=== PATIENT | female | born 1930 | race Caucasian/White ===

== ENCOUNTER 2017-03-02 21:16 | Inpatient (IN) | payer OTHER ==
[~2017-03-02] VITALS: Ht 139.7 cm; Wt 47.1 kg
[~2017-03-02 21:16] MED LIST: IBUP-727 PO
[2017-03-03] VITALS (8 sets, daily range): BP systolic 111–201; BP diastolic 58–91; PULSE 81; RESP 18–20; TEMP 98; Ht 139.7 cm; Wt 47.1 kg
--- NOTE | 2017-03-03 01:49 | ERA ---
ER Documentation Chief Complaint Date/Time DATE: 03/03/17 TIME: 01:48 Chief Complaint C/O LL LEG PAIN X1 MONTH FROM WOUND INJURY FROM A DOG GAIT FALLING ON HER HPI This is an 86-year-old female with complaints of left lower leg pain for a month female with chronic wound is currently healed. Patient is doing multiple course of outpatient antibiotics with no relief. No fevers no chills. No other current complaints ROS All systems reviewed and are negative except as per history of present illness. Medications Home Meds Reported Medications Ibuprofen (Motrin) 600 Mg Tablet, 600 MG PO DAILY 05/08/12 Allergies Allergies: Coded Allergies: No Known Allergy (Unverified , 11/20/15) PMhx/Soc History of Surgery: Yes (CHOLECYSTECTOMY) Anesthesia Reaction: No Hx Neurological Disorder: No Hx Respiratory Disorders: No Hx Cardiac Disorders: Yes (HTN) Hx Psychiatric Problems: No Hx Miscellaneous Medical Probl: No Hx Alcohol Use: No Hx Substance Use: No Hx Tobacco Use: No Smoking Status: Never smoker Physical Exam Vitals Vital Signs Date Time Temp Pulse Resp B/P Pulse Ox O2 Delivery O2 Flow Rate FiO2 03/02/17 21:42 96.7 88 20 190/88 97 Physical Exam Const: [] Head: Atraumatic Eyes: Normal Conjunctiva ENT: Normal External Ears, Nose and Mouth. Neck: Full range of motion..~ No meningismus. Resp: Clear to auscultation bilaterally Cardio: Regular rate and rhythm, no murmurs Abd: Soft, non tender, non distended. Normal bowel sounds Skin: Left lower extremity chronic wound showing minor infection Back: No midline or flank tenderness Ext: No cyanosis, or edema Neur: Awake and alert Psych: Normal Mood and Affect Procedures/MDM Medical assessment: 86 year female cellulitis with failed wound healing. Patient will be admitted for intravenous antibiotics. Departure Diagnosis: Primary Impression: Cellulitis Qualified Code: L03.90 - Cellulitis, unspecified cellulitis site Condition: Stable DWAYNEKAMIANNELIESEANTONIOCourtney Mar 03, 2017 01:49
[2017-03-03 02:05] LABS: ADD SCAN DIFF NO
[2017-03-03 02:09] LABS: ABNORMAL IP MESSAGE 1; HEMATOCRIT 36.6 % (37.0-47.0); HEMOGLOBIN 11.6 g/dl (12.0-16.0); MEAN CORPUSCULAR HEMOGLOBIN 28.2 pg (29.0-33.0); MEAN CORPUSCULAR HGB CONC 31.7 g/dl (32.0-37.0); MEAN CORPUSCULAR VOLUME 88.8 fl (82.0-101.0); PLATELET COUNT 93 10^3/UL (140-415); RED BLOOD COUNT 4.12 10^6/ul (4.20-5.40); RED CELL DISTRIBUTION WIDTH 13.2 % (11.5-14.5); WHITE BLOOD COUNT 3.9 10^3/ul (4.8-10.8)
[2017-03-03 02:20] LABS: MEAN PLATELET VOLUME 11.8 fl (7.4-10.4)
[2017-03-03 02:25] LABS: ADD UMIC YES; URINE BILIRUBIN (Dip) NEGATIVE (NEGATIVE); URINE BLOOD (Dip) TRACE (NEGATIVE); URINE COLOR LT. YELLOW (YELLOW); URINE GLUCOSE (Dip) NEGATIVE (NEGATIVE); URINE KETONES (Dip) NEGATIVE (NEGATIVE); URINE LEUKOCYTE ESTERASE (Dip) NEGATIVE (NEGATIVE); URINE NITRITE (Dip) NEGATIVE (NEGATIVE); URINE TOTAL PROTEIN (Dip) NEGATIVE (NEGATIVE); URINE UROBILINOGEN (Dip) 0.2 E.U./dL (0.1-1.0)
[2017-03-03 02:27] LABS: ALBUMIN 4.2 g/dl (3.3-4.9); POTASSIUM 4.1 mmol/L (3.5-5.1)
[2017-03-03 02:29] LABS: BILIRUBIN,INDIRECT 0.4 mg/dl (0-1.1); BILIRUBIN,TOTAL 0.4 mg/dl (0.2-1.3); CREATININE 0.57 mg/dl (0.44-1.00)
[2017-03-03 02:30] LABS: ALBUMIN/GLOBULIN RATIO 0.97; CALCIUM 9.3 mg/dl (8.4-10.2); TOTAL PROTEIN 8.5 g/dl (6.1-8.1)
[2017-03-03 02:41] LABS: BACTERIA,URINE OCCASIONAL; SQUAMOUS EPITHELIAL CELL,UR FEW
[2017-03-03 03:03] LABS: EOSINOPHILS # 0.5 10^3/ul (0.0-0.5); LYMPHOCYTES # 0.7 10^3/ul (0.8-2.9); MONOCYTE # 0.4 10^3/ul (0.3-0.9); NEUTROPHIL # 2.3 10^3/ul (1.6-7.5)
[2017-03-03 03:05] LABS: PLATELET ESTIMATE PLT APPEAR DECREASED
[2017-03-03] MEDS ORDERED: morphine 2 MG INJ IV PRN (04:00)
[2017-03-03] MEDS: CEFTRIAXONE 1 GM/50 ML (PMX) 50 ML IVPB SCH (04:06)
[2017-03-03] MEDS: SOD CHLORIDE 0.9% 1,000 ML IV SCH ×2 (04:06→23:19)
[2017-03-03] MEDS ORDERED: THYROID MEDS (04:19)
[2017-03-03 05:46] LABS: ADD SCAN DIFF NO
[2017-03-03 06:14] LABS: ALBUMIN 3.7 g/dl (3.3-4.9); POTASSIUM 3.5 mmol/L (3.5-5.1)
[2017-03-03 06:16] LABS: CREATININE 0.54 mg/dl (0.44-1.00)
[2017-03-03 06:17] LABS: ALBUMIN/GLOBULIN RATIO 0.92; BILIRUBIN,INDIRECT 0.3 mg/dl (0-1.1); BILIRUBIN,TOTAL 0.3 mg/dl (0.2-1.3); TOTAL PROTEIN 7.7 g/dl (6.1-8.1)
[2017-03-03] MEDS: PANTOPRAZOLE (EC) 40 MG TAB PO SCH (06:38)
[2017-03-03] MEDS: ENOXAPARIN 40 MG/0.4 ML SYG SC SCH (09:26)
[2017-03-03 10:36] LABS: BASOPHILS % 0.3 % (0.0-2.0); EOSINOPHILS # 0.2 10^3/ul (0.0-0.5); EOSINOPHILS % 6.6 % (0.0-7.0); HEMATOCRIT 33.2 % (37.0-47.0); HEMOGLOBIN 10.8 g/dl (12.0-16.0); MEAN CORPUSCULAR HEMOGLOBIN 29.3 pg (29.0-33.0); MEAN CORPUSCULAR HGB CONC 32.5 g/dl (32.0-37.0); MEAN CORPUSCULAR VOLUME 90.2 fl (82.0-101.0); MEAN PLATELET VOLUME 10.9 fl (7.4-10.4); MONOCYTE # 0.3 10^3/ul (0.3-0.9); MONOCYTES % 8.6 % (0.0-11.0); NEUTROPHIL # 1.9 10^3/ul (1.6-7.5); NEUTROPHILS % 54.2 % (39.0-77.0); PLATELET COUNT 116 10^3/UL (140-415); RED BLOOD COUNT 3.68 10^6/ul (4.20-5.40); RED CELL DISTRIBUTION WIDTH 13.2 % (11.5-14.5); WHITE BLOOD COUNT 3.5 10^3/ul (4.8-10.8)
--- NOTE | 2017-03-03 18:38 | QN ---
Documentation Comment [id number] JARED WINTER MD Mar 03, 2017 18:38
[2017-03-03] MEDS: ARTIFICIAL TEARS 15 ML OPH BOTH EYES PRN (19:20)
[2017-03-03] MEDS: LEVOTHYROXINE 25 MCG TAB PO SCH ×2 (20:40→21:00)
--- NOTE | 2017-03-03 21:26 | HP ---
DATE OF ADMISSION: 03/03/2017 HISTORY OF PRESENT ILLNESS: Samantha Cruz is an 86-year-old female who has a history of ERCP and sphincterectomy and some small stones removed in the past. The patient has no history of hypertension or diabetes mellitus. Presented with left leg wound going on for almost a month and is admitted for further management. Patient was seen, family is at bedside. The patient's WBC 3.9, hematocrit 32.6, platelet count 93, 1116 and patient has sodium of 137, potassium of 3.5, alk phos 163. Urine is negative. PAST MEDICAL HISTORY: Positive for ERCP and stone removal and of thyroid problem. ALLERGY HISTORY: NEGATIVE. FAMILY HISTORY: Negative. SOCIAL HISTORY: Negative. MEDICATION HISTORY: The patient is on thyroid medication. REVIEW OF SYSTEMS: HEENT: Unremarkable. RESPIRATORY: Unremarkable. CARDIOVASCULAR: Unremarkable. ABDOMEN: Unremarkable. EXTREMITIES: Complaining of left lower extremity leg wound and pain. CENTRAL NERVOUS SYSTEM: Unremarkable. PHYSICAL EXAMINATION: GENERAL: The patient is awake and alert. VITAL SIGNS: Pulse 73, blood pressure 135/61. HEAD: Atraumatic, normocephalic. Pupils equal, reactive to light. NECK: Supple. No JVD. LUNGS: Clear. CARDIOVASCULAR: S1, S2 are normal. ABDOMEN: Soft, nontender. Bowel sounds positive. No palpable mass or hepatosplenomegaly. No guarding, rebound tenderness. EXTREMITIES: There is no cyanosis, clubbing, or edema. CENTRAL NERVOUS SYSTEM: The patient is awake, alert, no focal deficit. LABORATORY DATA: CT scan. The patient has leg wound redness and erythema noted with some clear discharge. IMPRESSION: 1. Patient has leg cellulitis. 2. Other diagnoses include the patient has abnormal LFT. 3. Patient has pancytopenia. PLAN: At this point is to continue to give this patient DVT prophylaxis, Rocephin, p.r.n. blood pressure medicine for the time being since the patient has labile hypertension. HOME MEDICATIONS: Reviewed and continued. Thyroid panel was obtained. Dictated By: JARED WINTER MD BS/NTS Conf#: [id number] DID#: [id number] MTDD
[2017-03-04] MEDS: CEFTRIAXONE 1 GM/50 ML (PMX) 50 ML IVPB SCH (04:02)
[2017-03-04] MEDS: LEVOTHYROXINE 25 MCG TAB PO SCH (05:57)
[2017-03-04] MEDS: PANTOPRAZOLE (EC) 40 MG TAB PO SCH (05:57)
[2017-03-04 06:04] LABS: ADD SCAN DIFF NO
[2017-03-04 06:23] LABS: BASOPHILS % 0.3 % (0.0-2.0); EOSINOPHILS # 0.2 10^3/ul (0.0-0.5); EOSINOPHILS % 7.5 % (0.0-7.0); HEMATOCRIT 31.4 % (37.0-47.0); HEMOGLOBIN 10.2 g/dl (12.0-16.0); LYMPHOCYTES % 34.7 % (15.0-51.0); MEAN CORPUSCULAR HEMOGLOBIN 29.4 pg (29.0-33.0); MEAN CORPUSCULAR HGB CONC 32.5 g/dl (32.0-37.0); MEAN CORPUSCULAR VOLUME 90.5 fl (82.0-101.0); MEAN PLATELET VOLUME 10.6 fl (7.4-10.4); MONOCYTE # 0.3 10^3/ul (0.3-0.9); MONOCYTES % 9.2 % (0.0-11.0); NEUTROPHIL # 1.4 10^3/ul (1.6-7.5); PLATELET COUNT 109 10^3/UL (140-415); RED BLOOD COUNT 3.47 10^6/ul (4.20-5.40); RED CELL DISTRIBUTION WIDTH 13.2 % (11.5-14.5); WHITE BLOOD COUNT 2.9 10^3/ul (4.8-10.8)
[2017-03-04 06:40] LABS: ALBUMIN 3.3 g/dl (3.3-4.9)
[2017-03-04 06:41] LABS: POTASSIUM 3.9 mmol/L (3.5-5.1)
[2017-03-04 06:43] LABS: ALBUMIN/GLOBULIN RATIO 0.89; BILIRUBIN,INDIRECT 0.2 mg/dl (0-1.1); BILIRUBIN,TOTAL 0.2 mg/dl (0.2-1.3); CREATININE 0.56 mg/dl (0.44-1.00)
[2017-03-04 06:44] LABS: CALCIUM 8.4 mg/dl (8.4-10.2)
[2017-03-04 07:32] VITALS: BP 143/66; RESP 20
[2017-03-04] MEDS: ENOXAPARIN 40 MG/0.4 ML SYG SC SCH (09:43)
[2017-03-04] MEDS: SOD CHLORIDE 0.9% 1,000 ML IV SCH (20:44)
[2017-03-04 20:49] VITALS: BP 131/60; RESP 20
--- NOTE | 2017-03-04 23:05 | PN ---
Date/Time of Note Date/Time of Note DATE: 03/04/17 TIME: 23:03 Assessment/Plan VTE Prophylaxis VTE Prophylaxis Intervention: other Lines/Catheters IV Catheter Type (from [facility]): Peripheral IV Urinary Cath still in place: No Assessment/Plan Chief Complaint/Hosp Course IMPRESSION: 1. Patient has leg cellulitis. 2. Other diagnoses include the patient has abnormal LFT. 3. Patient has pancytopenia. plan antibiotic Problems: Subjective 24 Hr Interval Summary Subjective hx not possible: other (leg wound+) Exam/Review of Systems Vital Signs Vitals Vital Signs Date Time Temp Pulse Resp B/P Pulse Ox O2 Delivery O2 Flow Rate FiO2 03/04/17 20:49 98.1 90 20 131/60 96 03/03/17 02:13 Room Air Intake and Output 03/03/17 03/03/17 03/04/17 15:00 23:00 07:00 Intake Total 1760 ml 700 ml Output Total 1150 ml Balance 610 ml 700 ml Exam Respiratory: clear to auscultation Cardiovascular: regular rate and rhythm Gastrointestinal: bowel sounds, soft Extremities: edema Results Result Diagram: 03/04/17 0515 03/04/17 0515 Results 24 hrs Laboratory Tests Test 03/04/17 05:15 White Blood Count 2.9 L Red Blood Count 3.47 L Hemoglobin 10.2 L Hematocrit 31.4 L Mean Corpuscular Volume 90.5 Mean Corpuscular Hemoglobin 29.4 Mean Corpuscular Hemoglobin Concent 32.5 Red Cell Distribution Width 13.2 Platelet Count 109 L Mean Platelet Volume 10.6 H Neutrophils % 48.0 Lymphocytes % 34.7 Monocytes % 9.2 Eosinophils % 7.5 H Basophils % 0.3 Nucleated Red Blood Cells % 0.0 Neutrophils # 1.4 L Lymphocytes # 1.0 Monocytes # 0.3 Eosinophils # 0.2 Basophils # 0.0 Nucleated Red Blood Cells # 0.0 Sodium Level 138 Potassium Level 3.9 Chloride Level 105 Carbon Dioxide Level 23 Anion Gap 14 Blood Urea Nitrogen 13 Creatinine 0.56 Glucose Level 91 Calcium Level 8.4 Total Bilirubin 0.2 Direct Bilirubin 0.00 Indirect Bilirubin 0.2 Aspartate Amino Transf (AST/SGOT) 27 Alanine Aminotransferase (ALT/SGPT) 25 Alkaline Phosphatase 142 H Total Protein 7.0 Albumin 3.3 Globulin 3.70 H Albumin/Globulin Ratio 0.89 Medications Medications Current Medications Sodium Chloride (NS) 1,000 ml @ 50 mls/hr Q20H IV Last administered on 20:44; Admin Dose 50 MLS/HR; Start 03/03/17 at 04:00 Pantoprazole (Protonix Tab) 40 mg DAILY@06 PO Last administered on 03/04/17 05 :57; Admin Dose 40 MG; Start 03/03/17 at 06:00 Acetaminophen 650 mg 650 mg Q6H PRN PO PAIN AND OR ELEVATED TEMP; Start at 04:00 Ceftriaxone Sodium (Rocephin) 50 ml @ 100 mls/hr Q24H IVPB Last administered on 03/04/17 04:02; Admin Dose 100 MLS/HR; Start 03/03/17 at 04:00 Morphine Sulfate (morphine) 2 mg Q4H PRN IV PAIN; Start 03/03/17 at 04:00 Enoxaparin Sodium (Lovenox) 40 mg DAILY SC Last administered on 03/04/17 09:43 ; Admin Dose 40 MG; Start 03/03/17 at 09:00 Clonidine (Catapres) 0.1 mg Q6H PRN PO SBP >165 Last administered on 03/03/17 04:09; Admin Dose 0.1 MG; Start 03/03/17 at 04:00 Eye Lubricant (Artificial Tears Oph) 2 drop Q6H PRN BOTH EYES DRY EYES Last administered on 03/03/17 19:20; Admin Dose 2 DROP; Start 03/03/17 at 16:00 Levothyroxine Sodium (Synthroid) 25 mcg DAILY@06 PO ; Start 03/05/17 at 06:00 JARED WINTER MD Mar 04, 2017 23:05
[2017-03-05] MEDS: CEFTRIAXONE 1 GM/50 ML (PMX) 50 ML IVPB SCH (04:23)
[2017-03-05] MEDS: LEVOTHYROXINE 25 MCG TAB PO SCH (05:11)
[2017-03-05] MEDS: PANTOPRAZOLE (EC) 40 MG TAB PO SCH (05:11)
[2017-03-05 08:44] VITALS: BP 145/67; RESP 16
[2017-03-05] MEDS: ENOXAPARIN 40 MG/0.4 ML SYG SC SCH (10:41)
[2017-03-05] MEDS: SOD CHLORIDE 0.9% 1,000 ML IV SCH (15:28)
--- NOTE | 2017-03-05 18:56 | PN ---
Date/Time of Note Date/Time of Note DATE: 03/05/17 TIME: 18:55 Assessment/Plan VTE Prophylaxis VTE Prophylaxis Intervention: other Lines/Catheters [facility] ([facility] Peripheral IV Urinary Cath still in place: No Assessment/Plan Chief Complaint/Hosp Course IMPRESSION: 1. Patient has leg cellulitis. 2. Other diagnoses include the patient has abnormal LFT. 3. Patient has pancytopenia. plan antibiotic hematology consult Problems: Subjective 24 Hr Interval Summary Respiratory: no complaints Cardiovascular: no complaints Exam/Review of Systems Vital Signs Vitals Vital Signs Date Time Temp Pulse Resp B/P Pulse Ox O2 Delivery O2 Flow Rate FiO2 03/05/17 08:44 98.4 82 16 145/67 96 03/03/17 02:13 Room Air Intake and Output 03/04/17 03/04/17 03/05/17 14:59 22:59 06:59 Intake Total 720 ml 1200 ml 750 ml Output Total 500 ml 1300 ml Balance 720 ml 700 ml -550 ml Exam Neck: supple Respiratory: clear to auscultation Cardiovascular: regular rate and rhythm Gastrointestinal: soft Genitourinary - Female: nl adnexae Musculoskeletal: nl extremities to inspection Results Result Diagram: 03/04/1715 03/04/1715 Medications Medications Current Medications Sodium Chloride (NS) 1,000 ml @ 50 mls/hr Q20H IV Last administered on 15:28; Admin Dose 50 MLS/HR; Start 03/03/17 at 04:00 Pantoprazole (Protonix Tab) 40 mg DAILY@06 PO Last administered on 03/05/17 05 :11; Admin Dose 40 MG; Start 03/03/17 at 06:00 Acetaminophen 650 mg 650 mg Q6H PRN PO PAIN AND OR ELEVATED TEMP; Start at 04:00 Ceftriaxone Sodium (Rocephin) 50 ml @ 100 mls/hr Q24H IVPB Last administered on 03/05/17 04:23; Admin Dose 100 MLS/HR; Start 03/03/17 at 04:00 Morphine Sulfate (morphine) 2 mg Q4H PRN IV PAIN; Start 03/03/17 at 04:00 Enoxaparin Sodium (Lovenox) 40 mg DAILY SC Last administered on 03/05/17 10:41 ; Admin Dose 40 MG; Start 03/03/17 at 09:00 Clonidine (Catapres) 0.1 mg Q6H PRN PO SBP >165 Last administered on 03/03/17 04:09; Admin Dose 0.1 MG; Start 03/03/17 at 04:00 Eye Lubricant (Artificial Tears Oph) 2 drop Q6H PRN BOTH EYES DRY EYES Last administered on 03/03/17 19:20; Admin Dose 2 DROP; Start 03/03/17 at 16:00 Levothyroxine Sodium (Synthroid) 25 mcg DAILY@06 PO Last administered on 05:11; Admin Dose 25 MCG; Start 03/05/17 at 06:00 Collagenase (Santyl) 1 applic DAILY TOP ; Start 03/06/17 at 09:00 JARED WINTER MD Mar 05, 2017 18:56
--- NOTE | 2017-03-05 20:02 | CONS ---
Date/Time of Note Date/Time of Note DATE: 03/05/17 TIME: 19:58 Assessment/Plan Assessment/Plan Chief Complaint/Hosp Course The patient is an 86 year old female admitted for leg cellulitis, now noted to have pancytopenia with normal counts 1 month ago per family, recently treated with amoxcillin for left leg cellulitis # Pancytopenia, unclear baseline counts though normal per family as of 1 month ago, now with WBC 2.9, Hgb 10.2, with MCV 90.5, Plt 109. - May potentially be related to infection/sepsis or possibly related to recent antibiotics, though given age consider bone marrow process such as MDS. - Will check iron panel, ferritin, B12, folate, retic count, LDH, methylmalonic acid, homocysteine. TSH WNL. - Will check DIC panel, HIV, hep panel - Will check abdominal US to evaluate for cirrhosis or splenomegaly - Will request peripheral smear with path review; consider BMBx though will hold off for now given advanced age and family preference to only perform if absolutely necessary. Will continue to monitor counts. Problems: Consultation Date/Type/Reason Admit Date/Time Mar 04, 2017 at 12:15 Date of Consultation: Mar 05, 2017 Type of Consultation: Hematology Reason for Consultation Pancytopenia Hx of Present Illness The patient is an 86 year old female admitted for leg cellulitis, now noted to have pancytopenia. Per family she was noted to have normal labs 1 month ago, without anemia other than thyroid issues. She recently developed left leg cellulitis and received amoxicillin x 2 with worsening of infection, for which her family brought her in to the hospital. No fevers. No bleeding. She is active and able to perform her ADL's without cane or walker. Respiratory: no complaints Cardiovascular: no complaints Past Medical History ERCP with stone removal Hypothyroidism Family History Significant Family History: no pertinent family hx Social History Alcohol Use: none Smoking Status: Never smoker Exam/Review of Systems Vital Signs Vitals Vital Signs Date Time Temp Pulse Resp B/P Pulse Ox O2 Delivery O2 Flow Rate FiO2 03/05/17 08:44 98.4 82 16 145/67 96 03/03/17 02:13 Room Air Intake and Output 03/04/17 03/04/17 03/05/17 15:00 23:00 07:00 Intake Total 720 ml 1200 ml 750 ml Output Total 500 ml 1300 ml Balance 720 ml 700 ml -550 ml Exam Constitutional: alert, oriented Psych: no complaints Head: normocephalic Eyes: nl conjunctiva ENMT: nl external ears & nose Neck: supple Respiratory: clear to auscultation Cardiovascular: regular rate and rhythm Gastrointestinal: non-tender, soft Musculoskeletal: nl extremities to inspection (except leg leg wrapped) Results Result Diagram: 03/04/1751403/04/17514 Medications Medications Current Medications Sodium Chloride (NS) 1,000 ml @ 50 mls/hr Q20H IV Last administered on 15:28; Admin Dose 50 MLS/HR; Start 03/03/17 at 04:00 Pantoprazole (Protonix Tab) 40 mg DAILY@06 PO Last administered on 03/05/17 05 :11; Admin Dose 40 MG; Start 03/03/17 at 06:00 Acetaminophen 650 mg 650 mg Q6H PRN PO PAIN AND OR ELEVATED TEMP; Start at 04:00 Ceftriaxone Sodium (Rocephin) 50 ml @ 100 mls/hr Q24H IVPB Last administered on 03/05/17 04:23; Admin Dose 100 MLS/HR; Start 03/03/17 at 04:00 Morphine Sulfate (morphine) 2 mg Q4H PRN IV PAIN; Start 03/03/17 at 04:00 Enoxaparin Sodium (Lovenox) 40 mg DAILY SC Last administered on 03/05/17 10:41 ; Admin Dose 40 MG; Start 03/03/17 at 09:00 Clonidine (Catapres) 0.1 mg Q6H PRN PO SBP >165 Last administered on 03/03/17 04:09; Admin Dose 0.1 MG; Start 03/03/17 at 04:00 Eye Lubricant (Artificial Tears Oph) 2 drop Q6H PRN BOTH EYES DRY EYES Last administered on 03/03/17 19:20; Admin Dose 2 DROP; Start 03/03/17 at 16:00 Levothyroxine Sodium (Synthroid) 25 mcg DAILY@06 PO Last administered on 05:11; Admin Dose 25 MCG; Start 03/05/17 at 06:00 Collagenase (Santyl) 1 applic DAILY TOP ; Start 03/06/17 at 09:00 CHAN BYRNE MD Mar 05, 2017 20:02
[2017-03-05 20:17] VITALS: BP 140/95; RESP 18
[2017-03-06] MEDS: CEFTRIAXONE 1 GM/50 ML (PMX) 50 ML IVPB SCH (03:35)
[2017-03-06 05:55] LABS: HAAIG REFLEX REFLEX FILED
[2017-03-06] MEDS: LEVOTHYROXINE 25 MCG TAB PO SCH (05:57)
[2017-03-06] MEDS: PANTOPRAZOLE (EC) 40 MG TAB PO SCH (05:57)
[2017-03-06 06:07] LABS: RETICULOCYTE COUNT % 1.8 % (0.5-1.5)
[2017-03-06 06:32] LABS: IRON 49 ug/dl (35-150)
[2017-03-06 06:34] LABS: INR 1.01; PROTIME 13.3 Sec (12.2-14.2)
[2017-03-06 06:35] LABS: PARTIAL THROMBOPLASTIN TIME 29.1 Sec (25.0-35.0); THROMBIN TIME 15.1 SEC (13.8-19.1)
[2017-03-06 06:38] LABS: D-DIMER 1040.81 ng/ml (<460)
[2017-03-06 06:42] LABS: TOTAL IRON BINDING CAPACITY 269 ug/dl (241-421)
[2017-03-06 06:57] LABS: LACTATE DEHYDROGENASE 303 IU/L (313-618)
[2017-03-06 07:30] LABS: FERRITIN 52.3 ng/ml (11.1-264.0)
[2017-03-06 07:37] LABS: FIBRIN SPLIT PRODUCT <10 ug/ml (<10)
[2017-03-06 07:42] LABS: PLATELET COUNT 125 10^3/UL (140-440)
[2017-03-06 07:44] LABS: HEPATITIS B CORE ANTIBODY NEGATIVE (NEGATIVE)
[2017-03-06 07:51] VITALS: BP 177/79; RESP 16
[2017-03-06 07:51] LABS: ADD SCAN DIFF NO
[2017-03-06 07:57] LABS: BASOPHILS % 0.3 % (0.0-2.0); EOSINOPHILS # 0.2 10^3/ul (0.0-0.5); EOSINOPHILS % 6.2 % (0.0-7.0); HEMOGLOBIN 10.8 g/dl (12.0-16.0); LYMPHOCYTES # 1.1 10^3/ul (0.8-2.9); LYMPHOCYTES % 35.2 % (15.0-51.0); MEAN CORPUSCULAR HEMOGLOBIN 28.5 pg (29.0-33.0); MEAN CORPUSCULAR HGB CONC 31.8 g/dl (32.0-37.0); MEAN CORPUSCULAR VOLUME 89.7 fl (82.0-101.0); MEAN PLATELET VOLUME 10.8 fl (7.4-10.4); MONOCYTE # 0.3 10^3/ul (0.3-0.9); MONOCYTES % 7.7 % (0.0-11.0); NEUTROPHIL # 1.6 10^3/ul (1.6-7.5); NEUTROPHILS % 50.3 % (39.0-77.0); PLATELET COUNT 125 10^3/UL (140-415); RED BLOOD COUNT 3.79 10^6/ul (4.20-5.40); RED CELL DISTRIBUTION WIDTH 13.2 % (11.5-14.5); WHITE BLOOD COUNT 3.2 10^3/ul (4.8-10.8)
[2017-03-06 08:00] LABS: FOLATE 12.7 ng/ml (2.8-20.0)
[2017-03-06] MEDS: COLLAGENASE 30 GM TUBE TOP SCH (08:05)
[2017-03-06] MEDS: ENOXAPARIN 40 MG/0.4 ML SYG SC SCH (08:18)
--- NOTE | 2017-03-06 10:25 | RADRPT ---
PROCEDURE: US Abdomen and Retroperitoneum. CLINICAL INDICATION: Cirrhosis TECHNIQUE: Multiple real-time longitudinal and transverse images were acquired of the patient's ab domen and retroperitoneum utilizing a curved array transducer. COMPARISON: None. FINDINGS: The liver is normal in size and echogenicity. There is some surface nodularity of the liver. No foca l liver mass. Portal vein demonstrates hepatopetal flow. Status post cholecystectomy with residual extrahepatic biliary dilatation. Pancreas is partially visualized and grossly unremarkable. Spleen is normal in size. Kidneys demonstrate normal cortical thickness and echogenicity. No hydronephrosis. No ascites. Proximal aorta and IVC are unremarkable. MEASUREMENTS: Liver: 15.0 cm Common Duct: 1.5 cm Right Kidney: 8.1 cm Left Kidney: 8.8 cm Spleen: 12.4 cm Proximal aorta: 1.5 cm IMPRESSION: Nodular liver suggestive of cirrhosis. No focal hepatic masses are seen. Status post cholecystectomy with residual extrahepatic biliary dilatation. RPTAT:PP .Dc Steve MD, MD Date Time Electronically viewed and signed by .Dc Steve MD, on 03/06/2017 10:24 .V/
[2017-03-06] MEDS: SOD CHLORIDE 0.9% 1,000 ML IV SCH ×2 (12:00→16:42)
[2017-03-06] MEDS: ARTIFICIAL TEARS 15 ML OPH BOTH EYES PRN (13:21)
--- NOTE | 2017-03-06 14:56 | CONS ---
Date/Time of Note Date/Time of Note DATE: 03/06/17 TIME: 14:52 Assessment/Plan Assessment/Plan Chief Complaint/Hosp Course The patient is an 86 year old female admitted for leg cellulitis, now noted to have pancytopenia with normal counts 1 month ago per family, recently treated with amoxcillin for left leg cellulitis # Pancytopenia, unclear baseline counts though normal per family as of 1 month ago, now with WBC 2.9, Hgb 10.2, with MCV 90.5, Plt 109. Counts slightly better today with WBC 3.2, Hgb 10.8, Plt 125, ANc 1.6. - May potentially be related to infection/sepsis or possibly related to recent antibiotics, though given age consider bone marrow process such as MDS. - Iron panel suggests iron deficiency with Fe 49, TIBC 269, %sat 18, ferritin 52. Will give IV iron while in house and recommend PO iron upon discharge. Would recommend outpatient colonoscopy. Will check FOBT. - Vitamin B12 and folate WNL, pending methylmalonic acid, homocysteine. TSH WNL. Retic count 67K inappropriately low, LDH not elevated. - HIV and hep panel negative, DIC panel not consistent with DIC - Abdominal US 03/06/17 showed nodular liver suggestive of cirrhosis. Normal spleen. Suggest outpatient hepatology appointment. - Peripheral smear reviewed by path, no telltale signs of MDS or leukemia per Dr. Lima, no blasts, no dimorphic RBCs, etc; consider BMBx though will hold off for now given advanced age and family preference to only perform if absolutely necessary. Will continue to monitor counts. - Will obtain LE dopplers r/o DVT given L > R edema and pain though likely related to cellulitis - Patient can follow-up with me in clinic after discharge Problems: Consultation Date/Type/Reason Admit Date/Time Mar 04, 2017 at 12:15 Initial Consult Date 03/05/17 Type of Consultation: Hematology 24 HR Interval Summary Free Text/Dictation Patient eating. No complaints except some pain of LLE. Exam/Review of Systems Vital Signs Vitals Vital Signs Date Time Temp Pulse Resp B/P Pulse Ox O2 Delivery O2 Flow Rate FiO2 03/06/17 07:51 98.5 77 16 177/79 96 03/03/17 02:13 Room Air Intake and Output 03/05/17 03/05/17 03/06/17 15:00 23:00 07:00 Intake Total 1380 ml 1222 ml Output Total 850 ml 1100 ml Balance 530 ml 122 ml Exam Constitutional: alert, oriented Psych: no complaints Head: normocephalic Eyes: nl conjunctiva ENMT: nl external ears & nose Neck: supple Respiratory: clear to auscultation Cardiovascular: regular rate and rhythm Gastrointestinal: non-tender, soft Musculoskeletal: nl extremities to inspection (except left leg wrapped), L > R edema Results Result Diagram: 03/06/17 0510 03/04/17 0515 Results 24 hrs Laboratory Tests Test 03/06/17 05:10 White Blood Count 3.2 L Red Blood Count 3.79 L Hemoglobin 10.8 L Hematocrit 34.0 L Mean Corpuscular Volume 89.7 Mean Corpuscular Hemoglobin 28.5 L Mean Corpuscular Hemoglobin Concent 31.8 L Red Cell Distribution Width 13.2 Platelet Count 125 L Mean Platelet Volume 10.8 H Neutrophils % 50.3 Lymphocytes % 35.2 Monocytes % 7.7 Eosinophils % 6.2 Basophils % 0.3 Nucleated Red Blood Cells % 0.0 Neutrophils # 1.6 Lymphocytes # 1.1 Monocytes # 0.3 Eosinophils # 0.2 Basophils # 0.0 Nucleated Red Blood Cells # 0.0 Absolute Reticulocyte Count 0.067 Percent Reticulocyte Count 1.8 H Prothrombin Time 13.3 Prothrombin Time Ratio 1.0 INR International Normalized Ratio 1.01 Activated Partial Thromboplast Time 29.1 Thrombin Time 15.1 Fibrinogen 395.0 Plasma Fibrin Degradation Products <10 D-Dimer 1040.81 H D-Dimer Comment Iron Level 49 Total Iron Binding Capacity 269 Percent Iron Saturation 18 L Ferritin 52.3 Lactate Dehydrogenase 303 L Vitamin B12 Level 303 Folate 12.7 Hepatitis B Surface Antigen NEGATIVE Hepatitis B Core Total Antibody NEGATIVE Hepatitis C Antibody NEGATIVE HIV (1&2) Antibody NEGATIVE Medications Medications Current Medications Sodium Chloride (NS) 1,000 ml @ 50 mls/hr Q20H IV Last administered on 15:28; Admin Dose 50 MLS/HR; Start 03/03/17 at 04:00 Pantoprazole (Protonix Tab) 40 mg DAILY@06 PO Last administered on 03/06/17 05 :57; Admin Dose 40 MG; Start 03/03/17 at 06:00 Acetaminophen 650 mg 650 mg Q6H PRN PO PAIN AND OR ELEVATED TEMP; Start at 04:00 Ceftriaxone Sodium (Rocephin) 50 ml @ 100 mls/hr Q24H IVPB Last administered on 03/06/17 03:35; Admin Dose 100 MLS/HR; Start 03/03/17 at 04:00 Morphine Sulfate (morphine) 2 mg Q4H PRN IV PAIN; Start 03/03/17 at 04:00 Enoxaparin Sodium (Lovenox) 40 mg DAILY SC Last administered on 03/06/17 08:18 ; Admin Dose 40 MG; Start 03/03/17 at 09:00 Clonidine (Catapres) 0.1 mg Q6H PRN PO SBP >165 Last administered on 03/03/17 04:09; Admin Dose 0.1 MG; Start 03/03/17 at 04:00 Eye Lubricant (Artificial Tears Oph) 2 drop Q6H PRN BOTH EYES DRY EYES Last administered on 03/06/17 13:21; Admin Dose 2 DROP; Start 03/03/17 at 16:00 Levothyroxine Sodium (Synthroid) 25 mcg DAILY@06 PO Last administered on 05:57; Admin Dose 25 MCG; Start 03/05/17 at 06:00 Collagenase (Santyl) 1 applic DAILY TOP Last administered on 03/06/17 08:05; Admin Dose 1 APPLIC; Start 03/06/17 at 09:00 CHAN BYRNE MD Mar 06, 2017 14:56
[2017-03-06] MEDS: SOD FERRIC GLUC COMPLX 125 MG in SOD CHLORIDE 0.9% 100 ML IVPB SCH (16:42)
--- NOTE | 2017-03-06 17:26 | PN ---
Date/Time of Note Date/Time of Note DATE: 03/06/17 TIME: 17:19 Assessment/Plan VTE Prophylaxis VTE Prophylaxis Intervention: ambulation Lines/Catheters IV [facility] Peripheral IV Urinary Cath still in place: No Assessment/Plan Chief Complaint/Hosp Course 1. Left leg cellulitis Problems: Assessment/Plan 1. Antibiotics IV 2. Wound care Subjective 24 Hr Interval Summary Constitutional: improved, no complaints Exam/Review of Systems Vital Signs Vitals Vital Signs Date Time Temp Pulse Resp B/P Pulse Ox O2 Delivery O2 Flow Rate FiO2 03/06/17 07:51 98.5 77 16 177/79 96 03/03/17 02:13 Room Air Intake and Output 03/05/17 03/05/17 03/06/17 14:59 22:59 06:59 Intake Total 1380 ml 1222 ml Output Total 850 ml 1100 ml Balance 530 ml 122 ml Exam Constitutional: alert, oriented ENMT: nl external ears & nose Neck: supple Respiratory: clear to auscultation Cardiovascular: regular rate and rhythm Neurological: other Results Result Diagram: 03/06/17 0510 03/04/17 0515 Results 24 hrs Laboratory Tests Test 03/06/17 05:10 White Blood Count 3.2 L Red Blood Count 3.79 L Hemoglobin 10.8 L Hematocrit 34.0 L Mean Corpuscular Volume 89.7 Mean Corpuscular Hemoglobin 28.5 L Mean Corpuscular Hemoglobin Concent 31.8 L Red Cell Distribution Width 13.2 Platelet Count 125 L Mean Platelet Volume 10.8 H Neutrophils % 50.3 Lymphocytes % 35.2 Monocytes % 7.7 Eosinophils % 6.2 Basophils % 0.3 Nucleated Red Blood Cells % 0.0 Neutrophils # 1.6 Lymphocytes # 1.1 Monocytes # 0.3 Eosinophils # 0.2 Basophils # 0.0 Nucleated Red Blood Cells # 0.0 Absolute Reticulocyte Count 0.067 Percent Reticulocyte Count 1.8 H Prothrombin Time 13.3 Prothrombin Time Ratio 1.0 INR International Normalized Ratio 1.01 Activated Partial Thromboplast Time 29.1 Thrombin Time 15.1 Fibrinogen 395.0 Plasma Fibrin Degradation Products <10 D-Dimer 1040.81 H D-Dimer Comment Iron Level 49 Total Iron Binding Capacity 269 Percent Iron Saturation 18 L Ferritin 52.3 Lactate Dehydrogenase 303 L Vitamin B12 Level 303 Folate 12.7 Hepatitis B Surface Antigen NEGATIVE Hepatitis B Core Total Antibody NEGATIVE Hepatitis C Antibody NEGATIVE HIV (1&2) Antibody NEGATIVE Medications Medications Current Medications Sodium Chloride (NS) 1,000 ml @ 50 mls/hr Q20H IV Last administered on 16:42; Admin Dose 50 MLS/HR; Start 03/03/17 at 04:00 Pantoprazole (Protonix Tab) 40 mg DAILY@06 PO Last administered on 03/06/17 05 :57; Admin Dose 40 MG; Start 03/03/17 at 06:00 Acetaminophen 650 mg 650 mg Q6H PRN PO PAIN AND OR ELEVATED TEMP; Start at 04:00 Ceftriaxone Sodium (Rocephin) 50 ml @ 100 mls/hr Q24H IVPB Last administered on 03/06/17 03:35; Admin Dose 100 MLS/HR; Start 03/03/17 at 04:00 Morphine Sulfate (morphine) 2 mg Q4H PRN IV PAIN; Start 03/03/17 at 04:00 Enoxaparin Sodium (Lovenox) 40 mg DAILY SC Last administered on 03/06/17 08:18 ; Admin Dose 40 MG; Start 03/03/17 at 09:00 Clonidine (Catapres) 0.1 mg Q6H PRN PO SBP >165 Last administered on 03/03/17 04:09; Admin Dose 0.1 MG; Start 03/03/17 at 04:00 Eye Lubricant (Artificial Tears Oph) 2 drop Q6H PRN BOTH EYES DRY EYES Last administered on 03/06/17 13:21; Admin Dose 2 DROP; Start 03/03/17 at 16:00 Levothyroxine Sodium (Synthroid) 25 mcg DAILY@06 PO Last administered on 05:57; Admin Dose 25 MCG; Start 03/05/17 at 06:00 Collagenase 1 applic 1 applic DAILY TOP Last administered on 03/06/17 08:05; Admin Dose 1 APPLIC; Start 03/06/17 at 09:00 Ferric Sodium Gluconate Complex/ Sodium Chloride (Ferrlecit/NS) 110 ml @ 110 mls/hr Q24H IVPB Last administered on 03/06/17 16:42; Admin Dose 110 MLS/HR; Start 03/06/17 at 16:00; Stop 03/10/17 at 16:59 ALFRED MANCINI Mar 06, 2017 17:26
[2017-03-06 19:30] VITALS: BP 161/70; RESP 18
--- NOTE | 2017-03-06 22:10 | RADRPT ---
PROCEDURE: US Lower extremity Venous. CLINICAL INDICATION: Left leg pain. Infection TECHNIQUE: Multiple sonographic images of the left lower extremity deep venous system was obtained utilizing grayscale, color-flow, compressive sonography and doppler imaging with augmentation. COMPARISON: None. FINDINGS: There is normal compressibility / flow within the left common femoral, femoral and popliteal veins. The visualized deep veins of the calf are unremarkable. RPTAT:HJJR IMPRESSION: No sonographic evidence for deep venous thrombosis of the left lower extremity. Physician Saji Date Time Electronically viewed and signed by Physician Saji on 03/06/2017 22:10 /
[2017-03-07] MEDS: CEFTRIAXONE 1 GM/50 ML (PMX) 50 ML IVPB SCH (04:12)
[2017-03-07] MEDS: LEVOTHYROXINE 25 MCG TAB PO SCH (06:03)
[2017-03-07] MEDS: PANTOPRAZOLE (EC) 40 MG TAB PO SCH (06:03)
[2017-03-07 06:13] LABS: ADD SCAN DIFF NO
[2017-03-07 06:36] LABS: BASOPHILS % 0.3 % (0.0-2.0); EOSINOPHILS # 0.2 10^3/ul (0.0-0.5); EOSINOPHILS % 6.6 % (0.0-7.0); HEMATOCRIT 32.6 % (37.0-47.0); HEMOGLOBIN 10.5 g/dl (12.0-16.0); LYMPHOCYTES # 1.2 10^3/ul (0.8-2.9); LYMPHOCYTES % 36.2 % (15.0-51.0); MEAN CORPUSCULAR HEMOGLOBIN 28.8 pg (29.0-33.0); MEAN CORPUSCULAR HGB CONC 32.2 g/dl (32.0-37.0); MEAN CORPUSCULAR VOLUME 89.3 fl (82.0-101.0); MEAN PLATELET VOLUME 10.3 fl (7.4-10.4); MONOCYTE # 0.3 10^3/ul (0.3-0.9); MONOCYTES % 10.4 % (0.0-11.0); NEUTROPHIL # 1.5 10^3/ul (1.6-7.5); NEUTROPHILS % 46.5 % (39.0-77.0); PLATELET COUNT 109 10^3/UL (140-415); RED BLOOD COUNT 3.65 10^6/ul (4.20-5.40); RED CELL DISTRIBUTION WIDTH 13.2 % (11.5-14.5); WHITE BLOOD COUNT 3.2 10^3/ul (4.8-10.8)
[2017-03-07 07:53] VITALS: BP 164/82; RESP 18
[2017-03-07] MEDS: ARTIFICIAL TEARS 15 ML OPH BOTH EYES PRN (08:48)
[2017-03-07] MEDS: ENOXAPARIN 40 MG/0.4 ML SYG SC SCH (08:52)
[2017-03-07] MEDS: COLLAGENASE 30 GM TUBE TOP SCH (09:10)
--- NOTE | 2017-03-07 13:32 | PN ---
Date/Time of Note Date/Time of Note DATE: 03/07/17 TIME: 13:30 Assessment/Plan VTE Prophylaxis VTE Prophylaxis Intervention: ambulation Lines/Catheters [facility] ([facility]): Peripheral IV Urinary Cath still in place: No Assessment/Plan Chief Complaint/Hosp Course 1. Left leg cellulitis 2. Anemia Problems: Assessment/Plan 1. Continue wound care, 2. BLE US reviewed, normal 3. Arterial US BLE ordered 4. IV ab 5. Iron supplement Subjective 24 Hr Interval Summary Constitutional: improved, no complaints Skin: skin lesions Exam/Review of Systems Vital Signs Vitals Vital Signs Date Time Temp Pulse Resp B/P Pulse Ox O2 Delivery O2 Flow Rate FiO2 03/07/17 07:53 98.1 77 18 164/82 96 Intake and Output 03/06/17 03/06/17 03/07/17 14:59 22:59 06:59 Intake Total 1658 ml 815 ml Output Total 750 ml Balance 908 ml 815 ml Exam Constitutional: alert, oriented ENMT: nl external ears & nose Neck: supple Respiratory: clear to auscultation Cardiovascular: regular rate and rhythm Musculoskeletal: other (left leg wound) Extremities: normal pulses Results Result Diagram: 03/07/17 0540 03/04/17 0515 Results 24 hrs Laboratory Tests Test 03/07/17 05:40 03/07/17 12:20 White Blood Count 3.2 L Red Blood Count 3.65 L Hemoglobin 10.5 L Hematocrit 32.6 L Mean Corpuscular Volume 89.3 Mean Corpuscular Hemoglobin 28.8 L Mean Corpuscular Hemoglobin Concent 32.2 Red Cell Distribution Width 13.2 Platelet Count 109 L Mean Platelet Volume 10.3 Neutrophils % 46.5 Lymphocytes % 36.2 Monocytes % 10.4 Eosinophils % 6.6 Basophils % 0.3 Nucleated Red Blood Cells % 0.0 Neutrophils # 1.5 L Lymphocytes # 1.2 Monocytes # 0.3 Eosinophils # 0.2 Basophils # 0.0 Nucleated Red Blood Cells # 0.0 Stool Occult Blood NEGATIVE Medications Medications Current Medications Sodium Chloride (NS) 1,000 ml @ 50 mls/hr Q20H IV Last administered on t 16:42; Admin Dose 50 MLS/HR; Start 03/03/17 at 04:00 Pantoprazole (Protonix Tab) 40 mg DAILY@06 PO Last administered on 03/07/17 06 :03; Admin Dose 40 MG; Start 03/03/17 at 06:00 Acetaminophen 650 mg 650 mg Q6H PRN PO PAIN AND OR ELEVATED TEMP; Start at 04:00 Ceftriaxone Sodium (Rocephin) 50 ml @ 100 mls/hr Q24H IVPB Last administered on 03/07/17 04:12; Admin Dose 100 MLS/HR; Start 03/03/17 at 04:00 Morphine Sulfate (morphine) 2 mg Q4H PRN IV PAIN; Start 03/03/17 at 04:00 Enoxaparin Sodium (Lovenox) 40 mg DAILY SC Last administered on 03/07/17 08:52 ; Admin Dose 40 MG; Start 03/03/17 at 09:00 Clonidine (Catapres) 0.1 mg Q6H PRN PO SBP >165 Last administered on 03/03/17 04:09; Admin Dose 0.1 MG; Start 03/03/17 at 04:00 Eye Lubricant (Artificial Tears Oph) 2 drop Q6H PRN BOTH EYES DRY EYES Last administered on 03/07/17 08:48; Admin Dose 2 DROP; Start 03/03/17 at 16:00 Levothyroxine Sodium (Synthroid) 25 mcg DAILY@06 PO Last administered on 06:03; Admin Dose 25 MCG; Start 03/05/17 at 06:00 Collagenase 1 applic 1 applic DAILY TOP Last administered on 03/07/17 09:10; Admin Dose 1 APPLIC; Start 03/06/17 at 09:00 Ferric Sodium Gluconate Complex/ Sodium Chloride (Ferrlecit/NS) 110 ml @ 110 mls/hr Q24H IVPB Last administered on 03/06/17 16:42; Admin Dose 110 MLS/HR; Start 03/06/17 at 16:00; Stop 03/10/17 at 16:59 ALFRED MANCINI Mar 07, 2017 13:32
[2017-03-07] MEDS: SOD FERRIC GLUC COMPLX 125 MG in SOD CHLORIDE 0.9% 100 ML IVPB SCH (16:48)
[2017-03-07] MEDS: SOD CHLORIDE 0.9% 1,000 ML IV SCH (16:49)
--- NOTE | 2017-03-07 18:28 | PN ---
Date/Time of Note Date/Time of Note DATE: 03/07/17 TIME: 18:27 Assessment/Plan Lines/Catheters IV Catheter Type (from Nrs): Peripheral IV [place] in Place (from Nrs): No Assessment/Plan Chief Complaint/Hosp Course 1. Left lower extremity wound with cellulitis -Vascular studies pending -Antibiotics -Elevate -Local care -Nutritional optimization -Vitamin C -Short-term zinc 2 weeks -Debridement and eventual biologic implantation 2. Nodular liver with cirrhosis -GI and medical optimization 3. Thrombocytopenia secondary to above -As above 4. Anemia without evidence of acute blood loss -Monitor 5. Leukopenia probably scan to above -Medical and hematologic workup and optimization 6. Hypertension -Nutrition and medication optimization Thank you, Problems: Subjective 24 Hr Interval Summary Min pain at the site. Arterial studies pending. No f/c. No n/v. No cp/sob. No cough. No abdominal pain. No gilbert/dizzy/visual or neuro changes. No dysuria. Bowel function. Exam/Review of Systems Vital Signs Vitals Vital Signs Date Time Temp Pulse Resp B/P Pulse Ox O2 Delivery O2 Flow Rate FiO2 03/07/17 07:53 98.1 77 18 164/82 96 Intake and Output 03/06/17 03/06/17 03/07/17 15:00 23:00 07:00 Intake Total 1658 ml 815 ml Output Total 750 ml Balance 908 ml 815 ml Exam Constitutional: alert, oriented, No distress Psych: nl mood/affect, No anxiety Head: atraumatic, normocephalic Eyes: EOMI, PERRL, nl conjunctiva ENMT: mucosa pink and moist, nl external ears & nose, nl lips & teeth Neck: non-tender, supple Respiratory: normal air movement, No congested cough, No labored breathing Cardiovascular: edema (min LLE), regular rate and rhythm Gastrointestinal: non-tender, soft, No distended, No rebound or guarding Musculoskeletal: No joint tenderness, No nl extremities to inspection (LLE with open wound with devitalized tissue) Extremities: normal pulses, No calf tenderness, No cyanosis Neurological: nl mental status, nl speech, nl strength Skin: rash or lesions (LLE wound), No diaphoresis Lymph: nl lymph nodes Results Result Diagram: 03/07/17 0540 03/04/17 0515 PATRICIA WELCH MD Mar 07, 2017 18:28
[2017-03-07] MEDS ORDERED: LIDOCAINE 1%/EPI 30 ML INJ INJ STA (18:57)
[2017-03-07] MEDS ORDERED: SILVER NITRATE SWAB TOP ONE (19:00)
[2017-03-07 20:01] VITALS: BP 174/77; RESP 18
--- NOTE | 2017-03-07 20:08 | CONS ---
DATE OF ADMISSION: 03/04/2017 DATE OF CONSULTATION: 03/06/2017 TYPE OF CONSULTATION: Surgical. REFERRING PHYSICIAN: Juvencio Sanchez MD CHIEF COMPLAINT: Left lower leg wound and cellulitis. HISTORY OF PRESENT ILLNESS: Samantha Cruz is an 86-year-old female with multiple comorbidities who ap parently had an injury to her left lower leg and has had a persistent wound for about a month that i s not healing despite home remedies. She denies any fevers, chills. No nausea, vomiting. No chest pain, shortness of breath. No visual or neurologic changes. No dysuria. No other injuries. Cynthia l functions are stable. No loss of motor or sensation. However, she has pain at the site with swel ling and redness. Her workup identified her to be afebrile with stable and normal vitals, except elevated blood pressu re. Blood work shows leukopenia and anemia. Chemistry is mostly normal. Patient had an abdominal ultrasound which is suggestive of cirrhosis with nodularity, but no masses seen. She also had lower extremity Duplex which is negative of the left leg. Surgical consult is obtained for further evalu ation and treatment. PAST MEDICAL HISTORY: 1. Left lower extremity traumatic wound. 2. Subacute left lower extremity wound. 3. Cellulitis, left lower extremity. 4. History of gallstones. 5. Nodular liver with cirrhosis. 6. Hypertension. 7. Thyroid disease. 8. Arthritis. 9. Anemia. 10. Leukopenia. 11. Thrombocytopenia. PAST SURGICAL HISTORY: Cholecystectomy. MEDICATIONS: As per MAR. ALLERGIES: NONE. SOCIAL HISTORY: No current alcohol, drugs or tobacco. FAMILY HISTORY: Noncontributory. REVIEW OF SYSTEMS: A 12-point review of systems negative unless addressed in HPI. PHYSICAL EXAMINATION: VITAL SIGNS: Temperature is 98.5, pulse 77, blood pressure 177/79. GENERAL: No acute distress, comfortable, pleasant. HEENT: Pupils equal, reactive. No scleral icterus. Mucous membranes are moist. NECK: Supple. No JVD. PULMONARY: Normal respiratory effort. No wheezing. CARDIAC: S1, S2 present. ABDOMEN: Soft, nontender, no rebound, no guarding. EXTREMITIES: Minimal edema of left lower extremity. Moves all four. VASCULAR: Capillary refill is less than 2 seconds. SKIN: No rashes. No jaundice. Left lower extremity with blanching erythema and minimal edema and tenderness with wound. LABORATORY AND RADIOGRAPHIC: As per chart. ASSESSMENT AND PLAN: Samantha Cruz is an 86-year-old female with multiple comorbidities. 1. Left lower extremity traumatic wound with cellulitis. Continue local wound care, antibiotics, elevation and debridement as needed. Will make sure there is a culture of the wound and vascular ev aluation as well. 2. Nodular liver with cirrhosis. Continue medical and GI optimization. 3. Leukopenia, anemia and pancytopenia. Will defer to medical and hematology for further workup an d treatment, probably secondary to liver disease. 4. Hypertension. Continue medication and nutrition optimization. 5. Thyroid disease. Continue medical management. 6. Arthritis. Continue medical management. Thank you very much for consulting me in this patient's care. Dictated By: PATRICIA HARMON/ABE Conf#: [id number] DID#: [id number]
[2017-03-08] MEDS: CEFTRIAXONE 1 GM/50 ML (PMX) 50 ML IVPB SCH (04:04)
[2017-03-08 04:07] VITALS: BP 133/63; PULSE 63
[2017-03-08] MEDS: PANTOPRAZOLE (EC) 40 MG TAB PO SCH (06:08)
[2017-03-08] MEDS: LEVOTHYROXINE 25 MCG TAB PO SCH (06:08)
[2017-03-08 06:09] LABS: ADD SCAN DIFF NO
[2017-03-08 06:13] LABS: BASOPHILS % 0.3 % (0.0-2.0); EOSINOPHILS # 0.2 10^3/ul (0.0-0.5); EOSINOPHILS % 7.5 % (0.0-7.0); HEMATOCRIT 30.6 % (37.0-47.0); HEMOGLOBIN 9.8 g/dl (12.0-16.0); LYMPHOCYTES # 1.1 10^3/ul (0.8-2.9); LYMPHOCYTES % 36.1 % (15.0-51.0); MEAN CORPUSCULAR HEMOGLOBIN 28.7 pg (29.0-33.0); MEAN CORPUSCULAR VOLUME 89.5 fl (82.0-101.0); MEAN PLATELET VOLUME 10.2 fl (7.4-10.4); MONOCYTE # 0.3 10^3/ul (0.3-0.9); MONOCYTES % 10.5 % (0.0-11.0); NEUTROPHIL # 1.4 10^3/ul (1.6-7.5); NEUTROPHILS % 44.9 % (39.0-77.0); PLATELET COUNT 120 10^3/UL (140-415); RED BLOOD COUNT 3.42 10^6/ul (4.20-5.40); RED CELL DISTRIBUTION WIDTH 13.3 % (11.5-14.5); WHITE BLOOD COUNT 3.1 10^3/ul (4.8-10.8)
[2017-03-08 06:36] LABS: POTASSIUM 3.7 mmol/L (3.5-5.1)
[2017-03-08 06:39] LABS: CREATININE 0.61 mg/dl (0.44-1.00)
[2017-03-08 06:40] LABS: CALCIUM 8.8 mg/dl (8.4-10.2)
[2017-03-08 07:58] VITALS: BP 163/70; RESP 18
[2017-03-08] MEDS: COLLAGENASE 30 GM TUBE TOP SCH (08:09)
[2017-03-08] MEDS: ENOXAPARIN 40 MG/0.4 ML SYG SC SCH (08:23)
--- NOTE | 2017-03-08 11:22 | RADRPT ---
PROCEDURE: US Lower extremity Arteries. CLINICAL INDICATION: Left foot ulcer TECHNIQUE: Multiple longitudinal and transverse images of the bilateral lower extremity arteries w ere obtained with mirza scale and color Doppler imaging. COMPARISON: No prior studies are available for comparison. FINDINGS: Location RightLeft CFA91 cm/sec87 cm/sec AOKA263 cm/nda129 cm/sec MSFA71 cm/sec75 cm/sec DSFA44 cm/sec60 cm/sec POP61 cm/sec59 cm/sec ATAnot evaluatednot evaluated IJF125 cm/sec96 cm/sec DPA33 cm/sec20 cm/sec Fine linear calcifications of arteriosclerosis are noted. IMPRESSION: 1. No evidence for hemodynamically significant stenosis or occlusion. 2. Moderate arteriosclerosis noted in the small vessels. RPTAT: QQ .Dayday Son MD, Date Time Electronically viewed and signed by .Dayday Son MD, on 03/08/2017 11:22 .M/
[2017-03-08] MEDS: SOD FERRIC GLUC COMPLX 125 MG in SOD CHLORIDE 0.9% 100 ML IVPB SCH (15:38)
[2017-03-08] MEDS: SOD CHLORIDE 0.9% 1,000 ML IV SCH (15:38)
[2017-03-08] MEDS: ACETAMINOPHEN 325 MG TAB PO PRN (18:17)
[2017-03-08] MEDS: ARTIFICIAL TEARS 15 ML OPH BOTH EYES PRN (18:18)
--- NOTE | 2017-03-08 18:38 | PDOCDIS ---
Discharge Instructions CONDITION Patient Condition: Stable HOME CARE INSTRUCTIONS: Special Diet: 2gm NA ACTIVITY: Activity Restrictions: Slowly Increase Activity FOLLOW UP/APPOINTMENTS Appointments f/u pcp [address] win [address] ennis 2 wks JARED WINTER MD Mar 08, 2017 18:38
[2017-03-08] MEDS ORDERED: DOXY100T20 PO (18:39)
[2017-03-08] MEDS ORDERED: LEVO25TA53 PO (18:39)
--- NOTE | 2017-03-08 18:42 | PN ---
Date/Time of Note Date/Time of Note DATE: 03/08/17 TIME: 18:41 Assessment/Plan VTE Prophylaxis VTE Prophylaxis Intervention: other Lines/Catheters IV Catheter Type (from [facility] [place]): Peripheral IV Urinary Cath still in place: No Assessment/Plan Chief Complaint/Hosp Course IMPRESSION: 1. Patient has leg cellulitis. 2. Other diagnoses include the patient has abnormal LFT. 3. Patient has pancytopenia. plan antibiotic home health home Problems: Subjective 24 Hr Interval Summary Cardiovascular: no complaints Gastrointestinal: no complaints Exam/Review of Systems Vital Signs Vitals Vital Signs Date Time Temp Pulse Resp B/P Pulse Ox O2 Delivery O2 Flow Rate FiO2 03/08/17 07:58 97.9 70 18 163/70 97 Intake and Output 03/07/17 03/07/17 03/08/17 15:00 23:00 07:00 Intake Total 1610 ml 1580 ml Output Total 1450 ml 1500 ml Balance 160 ml 80 ml Exam ENMT: nl external ears & nose Neck: supple Respiratory: clear to auscultation Cardiovascular: regular rate and rhythm Gastrointestinal: soft Extremities: normal pulses, No calf tenderness Results Result Diagram: 03/08/17 0527 03/08/17 0527 Results 24 hrs Laboratory Tests Test 03/08/17 05:27 White Blood Count 3.1 L Red Blood Count 3.42 L Hemoglobin 9.8 L Hematocrit 30.6 L Mean Corpuscular Volume 89.5 Mean Corpuscular Hemoglobin 28.7 L Mean Corpuscular Hemoglobin Concent 32.0 Red Cell Distribution Width 13.3 Platelet Count 120 L Mean Platelet Volume 10.2 Neutrophils % 44.9 Lymphocytes % 36.1 Monocytes % 10.5 Eosinophils % 7.5 H Basophils % 0.3 Nucleated Red Blood Cells % 0.0 Neutrophils # 1.4 L Lymphocytes # 1.1 Monocytes # 0.3 Eosinophils # 0.2 Basophils # 0.0 Nucleated Red Blood Cells # 0.0 Sodium Level 140 Potassium Level 3.7 Chloride Level 105 Carbon Dioxide Level 28 Anion Gap 11 Blood Urea Nitrogen 10 Creatinine 0.61 Glucose Level 89 Calcium Level 8.8 Medications Medications Current Medications Sodium Chloride (NS) 1,000 ml @ 50 mls/hr Q20H IV Last administered on t 15:38; Admin Dose 50 MLS/HR; Start 03/03/17 at 04:00 Pantoprazole (Protonix Tab) 40 mg DAILY@06 PO Last administered on 03/08/17 06 :08; Admin Dose 40 MG; Start 03/03/17 at 06:00 Acetaminophen 650 mg 650 mg Q6H PRN PO PAIN AND OR ELEVATED TEMP Last administered on 03/08/17 18:17; Admin Dose 650 MG; Start 03/03/17 at 04:00 Ceftriaxone Sodium (Rocephin) 50 ml @ 100 mls/hr Q24H IVPB Last administered on 03/08/17 04:04; Admin Dose 100 MLS/HR; Start 03/03/17 at 04:00 Morphine Sulfate (morphine) 2 mg Q4H PRN IV PAIN; Start 03/03/17 at 04:00 Enoxaparin Sodium (Lovenox) 40 mg DAILY SC Last administered on 03/08/17 08:23 ; Admin Dose 40 MG; Start 03/03/17 at 09:00 Clonidine (Catapres) 0.1 mg Q6H PRN PO SBP >165 Last administered on 03/07/17 22:17; Admin Dose 0.1 MG; Start 03/03/17 at 04:00 Eye Lubricant (Artificial Tears Oph) 2 drop Q6H PRN BOTH EYES DRY EYES Last administered on 03/08/17 18:18; Admin Dose 2 DROP; Start 03/03/17 at 16:00 Levothyroxine Sodium (Synthroid) 25 mcg DAILY@06 PO Last administered on 06:08; Admin Dose 25 MCG; Start 03/05/17 at 06:00 Collagenase 1 applic 1 applic DAILY TOP Last administered on 03/08/17 08:09; Admin Dose 1 APPLIC; Start 03/06/17 at 09:00 Ferric Sodium Gluconate Complex/ Sodium Chloride (Ferrlecit/NS) 110 ml @ 110 mls/hr Q24H IVPB Last administered on 03/08/17 15:38; Admin Dose 110 MLS/HR; Start 03/06/17 at 16:00; Stop 03/10/17 at 16:59 Lidocaine/ Epinephrine (Xylocaine 2%/ Epi (Mdv) 20 ml) 20 ml ONCE ONCE INJ ; Start 03/09/17 at 05:00; Stop 03/09/17 at 05:01 JARED WINTRE MD Mar 08, 2017 18:42
[2017-03-08 19:51] VITALS: BP 152/68; RESP 20
[2017-03-09] MEDS: CEFTRIAXONE 1 GM/50 ML (PMX) 50 ML IVPB SCH (03:47)
[2017-03-09] MEDS: SOD CHLORIDE 0.9% 1,000 ML IV SCH (03:48)
[2017-03-09] MEDS ORDERED: LIDOCAINE 2%/EPI (MDV) 20ML INJ INJ ONE (05:00)
[2017-03-09] MEDS: PANTOPRAZOLE (EC) 40 MG TAB PO SCH (05:57)
[2017-03-09] MEDS: LEVOTHYROXINE 25 MCG TAB PO SCH (05:57)
[2017-03-09 07:50] VITALS: BP 136/65; RESP 18
[2017-03-09] MEDS: COLLAGENASE 30 GM TUBE TOP SCH (08:18)
[2017-03-09] MEDS: ENOXAPARIN 40 MG/0.4 ML SYG SC SCH (08:37)
--- NOTE | 2017-03-09 12:34 | PN ---
Date/Time of Note Date/Time of Note DATE: 03/08/17 TIME: 12:31 Assessment/Plan Lines/Catheters IV Catheter Type (from [facility]): Peripheral IV [place] in Place (from [facility]): No Assessment/Plan Chief Complaint/Hosp Course 1. Left lower extremity wound with cellulitis. Vascular studies noted. s/p Antibiotics. -Elevate -Local care -Nutritional optimization -Vitamin C -Short-term zinc 2 weeks -Debridement and biologic implantation 2. Nodular liver with cirrhosis -GI and medical optimization 3. Thrombocytopenia secondary to above -As above 4. Anemia without evidence of acute blood loss -Monitor 5. Leukopenia probably scan to above -Medical and hematologic workup and optimization 6. Hypertension -Nutrition and medication optimization Thank you, Late entry 03/08 Problems: Subjective 24 Hr Interval Summary Biologic tissue not available yet. Min pain at the site. Arterial/venous studies noted. No f/c. No n/v. No cp/sob. No cough. No abdominal pain. No gilbert/dizzy/visual or neuro changes. No dysuria. Bowel function. Exam/Review of Systems Vital Signs Vitals Vital Signs Date Time Temp Pulse Resp B/P Pulse Ox O2 Delivery O2 Flow Rate FiO2 03/09/17 07:50 98.8 77 18 136/65 96 Intake and Output 03/08/17 03/08/17 03/09/17 15:00 23:00 07:00 Intake Total 1940 ml 710 ml Output Total 1650 ml 1150 ml Balance 290 ml -440 ml Exam Free Text/Dictation Constitutional: alert, oriented, No distress Psych: nl mood/affect, No anxiety Head: atraumatic, normocephalic Eyes: EOMI, PERRL, nl conjunctiva ENMT: mucosa pink and moist, nl external ears & nose, nl lips & teeth Neck: non-tender, supple Respiratory: normal air movement, No congested cough, No labored breathing Cardiovascular: edema (min LLE), regular rate and rhythm Gastrointestinal: non-tender, soft, No distended, No rebound or guarding Musculoskeletal: No joint tenderness, No nl extremities to inspection (LLE with open wound with devitalized tissue) Extremities: normal pulses, No calf tenderness, No cyanosis Neurological: nl mental status, nl speech, nl strength Skin: rash or lesions (LLE wound), No diaphoresis Lymph: nl lymph nodes Results Result Diagram: 03/08/17 0527 03/08/17 0527 PATRICIA WELCH MD March 09, 2017 12:34
--- NOTE | 2017-03-09 12:37 | CONS ---
Date/Time of Note Date/Time of Note DATE: 03/09/17 TIME: 12:32 Assessment/Plan Assessment/Plan Chief Complaint/Hosp Course The patient is an 86 year old female admitted for leg cellulitis, now noted to have pancytopenia with normal counts 1 month ago per family, recently treated with amoxicillin for left leg cellulitis # Pancytopenia, unclear baseline counts though normal per family as of 1 month ago, now with WBC 2.9, Hgb 10.2, with MCV 90.5, Plt 109. counts are currently stable - May potentially be related to infection/sepsis or possibly related to recent antibiotics, though given age consider bone marrow process such as MDS. - Iron panel suggests iron deficiency with Fe 49, TIBC 269, %sat 18, ferritin 52. Will give IV iron while in house and recommend PO iron upon discharge. Would recommend outpatient colonoscopy. Will check FOBT. on IV iron for now - Vitamin B12 and folate WNL, pending methylmalonic acid, homocysteine. TSH WNL. Retic count 67K inappropriately low, LDH not elevated. - HIV and hep panel negative, DIC panel not consistent with DIC - Abdominal US 03/06/17 showed nodular liver suggestive of cirrhosis. Normal spleen. Suggest outpatient hepatology appointment. - Peripheral smear reviewed by path, no telltale signs of MDS or leukemia per Dr. Lima, no blasts, no dimorphic RBCs, etc; consider BMBx though will hold off for now given advanced age and family preference to only perform if absolutely necessary. -no evidence of DVT Recs: Will continue to monitor counts. - Patient can follow-up with me in clinic after discharge -ok for patient to proceed with any planned surgical procedure including debridement if that is indicated Problems: Consultation Date/Type/Reason Admit Date/Time Mar 04, 2017 at 12:15 Initial Consult Date 03/05/17 Type of Consultation: Hematology Reason for Consultation anemia Referring Provider: JARED WINTER 24 HR Interval Summary Free Text/Dictation patient continues on IV antibiotics Exam/Review of Systems Vital Signs Vitals Vital Signs Date Time Temp Pulse Resp B/P Pulse Ox O2 Delivery O2 Flow Rate FiO2 03/09/17 07:50 98.8 77 18 136/65 96 Intake and Output 03/08/17 03/08/17 03/09/17 15:00 23:00 07:00 Intake Total 1940 ml 710 ml Output Total 1650 ml 1150 ml Balance 290 ml -440 ml Exam Constitutional: alert, oriented Psych: no complaints Head: atraumatic, normocephalic Eyes: nl conjunctiva ENMT: nl external ears & nose Neck: non-tender, supple Respiratory: clear to auscultation, normal air movement Cardiovascular: regular rate and rhythm Gastrointestinal: soft Musculoskeletal: other (LLE wound on ankle) Results Result Diagram: 03/08/1752603/08/17526 Medications Medications Current Medications Sodium Chloride (NS) 1,000 ml @ 50 mls/hr Q20H IV Last administered on 15:38; Admin Dose 50 MLS/HR; Start 03/03/17 at 04:00 Pantoprazole (Protonix Tab) 40 mg DAILY@06 PO Last administered on 03/09/17 05: 57; Admin Dose 40 MG; Start 03/03/17 at 06:00 Acetaminophen 650 mg 650 mg Q6H PRN PO PAIN AND OR ELEVATED TEMP Last administered on 03/08/17 18:17; Admin Dose 650 MG; Start 03/03/17 at 04:00 Ceftriaxone Sodium (Rocephin) 50 ml @ 100 mls/hr Q24H IVPB Last administered on 03/09/17 03:47; Admin Dose 100 MLS/HR; Start 03/03/17 at 04:00 Morphine Sulfate (morphine) 2 mg Q4H PRN IV PAIN; Start 03/03/17 at 04:00 Enoxaparin Sodium (Lovenox) 40 mg DAILY SC Last administered on 03/09/17 08:37 ; Admin Dose 40 MG; Start 03/03/17 at 09:00 Clonidine (Catapres) 0.1 mg Q6H PRN PO SBP >165 Last administered on 03/07/17 22:17; Admin Dose 0.1 MG; Start 03/03/17 at 04:00 Eye Lubricant (Artificial Tears Oph) 2 drop Q6H PRN BOTH EYES DRY EYES Last administered on 03/08/17 18:18; Admin Dose 2 DROP; Start 03/03/17 at 16:00 Levothyroxine Sodium (Synthroid) 25 mcg DAILY@06 PO Last administered on 05:57; Admin Dose 25 MCG; Start 03/05/17 at 06:00 Collagenase 1 applic 1 applic DAILY TOP Last administered on 03/09/17 08:18; Admin Dose 1 APPLIC; Start 03/06/17 at 09:00 Ferric Sodium Gluconate Complex/ Sodium Chloride (Ferrlecit/NS) 110 ml @ 110 mls/hr Q24H IVPB Last administered on 03/08/17 15:38; Admin Dose 110 MLS/HR; Start 03/06/17 at 16:00; Stop 03/10/17 at 16:59 PAULINE INMAN M.D. March 09, 2017 12:37
--- NOTE | 2017-03-09 12:40 | OPR ---
Date/Time of Note Date/Time of Note DATE: 03/09/17 TIME: 12:34 Operative Report Procedure Date: Mar 08, 2017 Preoperative Diagnosis Left lower extremity wound with necrotic tissue, 4x3cm Postoperative Diagnosis Same Operation Performed Excisional debridement of skin and subcutaneous tissue, 4x3cm Surgeon: PATRICIA WELCH MD Estimated Blood Loss: minimal Specimens None Tubes/Drains None Complications: None Pt Condition Post Procedure: stable Disposition: other (Own room) Procedure Description Patient placed in her own bed on lateral decubitus position. Pressure points well padded. Time out performed. Curette used to excisionally debride the skin and subcutaneous tissue of the left calf. Wound hemostasis with pressure and silver nitrate. Dressing applied. PATRICIA WELCH MD March 09, 2017 12:40
--- NOTE | 2017-03-09 12:41 | PN ---
Date/Time of Note Date/Time of Note DATE: 03/09/17 TIME: 12:40 Assessment/Plan Lines/Catheters IV Catheter Type (from Nrs): Peripheral IV [place] in Place (from Nrs): No Assessment/Plan Chief Complaint/Hosp Course 1. Left lower extremity wound with cellulitis. Vascular studies noted. s/p Antibiotics. -Elevate -Local care -Nutritional optimization -Vitamin C -Short-term zinc 2 weeks -Biologic implantation 2. Nodular liver with cirrhosis -GI and medical optimization 3. Thrombocytopenia secondary to above -As above 4. Anemia without evidence of acute blood loss -Monitor 5. Leukopenia probably scan to above -Medical and hematologic workup and optimization 6. Hypertension -Nutrition and medication optimization Thank you, Problems: Subjective 24 Hr Interval Summary Min pain at the site. Arterial studies pending. No f/c. No n/v. No cp/sob. No cough. No abdominal pain. No gilbert/dizzy/visual or neuro changes. No dysuria. Bowel function. Exam/Review of Systems Vital Signs Vitals Vital Signs Date Time Temp Pulse Resp B/P Pulse Ox O2 Delivery O2 Flow Rate FiO2 03/09/17 07:50 98.8 77 18 136/65 96 Intake and Output 03/08/17 03/08/17 03/09/17 15:00 23:00 07:00 Intake Total 1940 ml 710 ml Output Total 1650 ml 1150 ml Balance 290 ml -440 ml Exam Free Text/Dictation Constitutional: alert, oriented, No distress Psych: nl mood/affect, No anxiety Head: atraumatic, normocephalic Eyes: EOMI, PERRL, nl conjunctiva ENMT: mucosa pink and moist, nl external ears & nose, nl lips & teeth Neck: non-tender, supple Respiratory: normal air movement, No congested cough, No labored breathing Cardiovascular: edema (min LLE), regular rate and rhythm Gastrointestinal: non-tender, soft, No distended, No rebound or guarding Musculoskeletal: No joint tenderness, No nl extremities to inspection (LLE with open wound with devitalized tissue) Extremities: normal pulses, No calf tenderness, No cyanosis Neurological: nl mental status, nl speech, nl strength Skin: rash or lesions (LLE wound), No diaphoresis Lymph: nl lymph nodes Results Result Diagram: 03/08/1752603/08/17526 PATRICIA WELCH MD March 09, 2017 12:41
--- NOTE | 2017-03-09 12:42 | OPR ---
Date/Time of Note Date/Time of Note DATE: 03/09/17 TIME: 12:41 Operative Report Procedure Date: Mar 08, 2017 Preoperative Diagnosis Left lower extremity non healing wound, 4x3cm, s/p excisional debridement Postoperative Diagnosis Same Operation Performed Excisional debridement of skin and subcutaneous tissue, 4x3cm Surgeon: PATRICIA WELCH MD Estimated Blood Loss: minimal Specimens None Tubes/Drains ACell xenograft biologic Complications: None Pt Condition Post Procedure: stable Disposition: other (Own room) Indications Per notes. R/B/A as per usual and customary. Procedure Description Patient was placed lateral decub position with all pressure points well padded. Time out performed. Wound cleansed and xenograft biologic implant applied. Then covered with non adherent dressing followed by [place]. Patient tolerated procedure well. PATRICIA WELCH MD March 09, 2017 12:42
[2017-03-09] MEDS: ACETAMINOPHEN 325 MG TAB PO PRN (14:06)
[2017-03-09] MEDS: ARTIFICIAL TEARS 15 ML OPH BOTH EYES PRN (15:13)
[2017-03-09] MEDS: SOD FERRIC GLUC COMPLX 125 MG in SOD CHLORIDE 0.9% 100 ML IVPB SCH (15:14)
--- NOTE | 2017-03-09 17:46 | QN ---
Documentation Comment [id number] JARED WINTER MD March 09, 2017 17:46
[2017-03-09 19:00] LABS: HOMOCYSTEINE - CARDIOVASCULAR 9.7 umol/L (<10.4)
--- NOTE | 2017-03-10 02:59 | DS ---
DATE OF ADMISSION: 03/04/2017 DATE OF DISCHARGE: 03/09/2017 HOSPITAL COURSE: The patient is an 86-year-old female who was admitted with left leg wound. The pa lincoln has pancytopenia and was seen by Dr. Vazquez in consultation. Noted to have cirrhosis by ultras ound of the abdomen. The patient also had ultrasound of arterial lower extremity, shows no evidence for hemodynamically significant stenosis, moderate atherosclerosis. The patient has no sonographic evidence for deep venous thrombosis of the left lower extremity. The patient's cultures were negat kenney. The patient is stable to be discharged. DISCHARGE DIAGNOSES: 1. Left leg cellulitis. 2. Pancytopenia. 3. Cirrhosis of the liver. 4. The patient is status post bedside incision and drainage. 5. The patient had excisional debridement of skin and subcutaneous tissue. DISCHARGE MEDICATIONS: To continue on: 1. Doxycycline. 2. Levothyroxine. DISCHARGE INSTRUCTIONS: Follow up with PCP and Dr. Solomon Burch as an outpatient, as well to see Dr. Vazquez. DISCHARGE CONDITION: Stable at the time of discharge. Dictated By: JARED RODRIGUEZ/NTS Conf#: [id number] DID#: [id number]
== END 2017-03-09 16:55 | disposition home health service (06) | DRG 574 ==
LOC: E/R 21:16 → MS2 03-03 01:50 → OBSVTOIN 03-04 12:15
PROVIDERS: ADMIT Internal Medicine Nephrology; ATTEND Internal Medicine Nephrology
PROC: 0JBP0ZZ Excision of Left Lower Leg Subcutaneous Tissue and Fascia, Open Approach (ICD-10-PCS; principal; 2017-03-08)
PROC: 0HRLXK3 Replacement of Left Lower Leg Skin with Nonautologous Tissue Substitute, Full Thickness, External Approach (ICD-10-PCS; 2017-03-08)
DX: L03.116 Cellulitis of left lower limb (principal); D61.818 Other pancytopenia; K74.60 Unspecified cirrhosis of liver; R79.89 Other specified abnormal findings of blood chemistry; Z87.19 Personal history of other diseases of the digestive system; Z98.890 Other specified postprocedural states; E03.9 Hypothyroidism, unspecified; I10 Essential (primary) hypertension; E07.9 Disorder of thyroid, unspecified; M19.90 Unspecified osteoarthritis, unspecified site
CPT/HCPCS: 36415; 76700; 80048; 80053; 81001; 81003; 82270; 82607; 82728; 82746; 83090; 83540; 83615; 83690; 83921; 84443; 85025; 85045; 85049; 85362; 85378; 85384; 85610; 85670; 85730; 86703; 86704; 86709; 86803; 87040; 87340; 93922; 93971; G0378; J0696; J1650; J2916; J7030